=== PATIENT | female | born 1955 | race Caucasian/White ===

== ENCOUNTER 2016-10-20 00:29 | Observation (INO) ==
[2016-10-20] MEDS ORDERED: SODIUM CHLORIDE 0.9% 1,000 ML IV STA (00:56)
[2016-10-20] MEDS ORDERED: ONDANSETRON 4 MG/2 ML VIAL IV STA (00:56)
[2016-10-20] MEDS ORDERED: ONDANSETRON 4 MG/2 ML VIAL ONE (00:57)
--- NOTE | 2016-10-20 01:08 | Emergency Department Note ---
Chepe Hoang Rolonda, am scribing for, and in the presence of, Carroll Holman MD 01:08. Manda Hoang Charles R, MD, personally performed the services described in this documentation, ascribed by Roseline Mo in my presence, and it is both accurate and complete . Arrival - Arrival Chief Complaint: Nausea/Vomiting/Diarrhea Stated Complaint: vomiting ED Nursing Triage Note: pt was camping and finished eating dinner and suddenly became nauseated and started vomitting. pt family states she has been vomitting continuously since Mode of Arrival: Wheelchair Limitations: No Limitations Source: Patient, Family (daughter), Old Records Reviewed, RN Notes Reviewed Time Seen by Provider: 10/20/16 00:52 - History of Present Illness HPI Narrative: Pt is a 61 y/o female who presents to the ED via wheelchair for further evaluation of N/V with an onset of x3 hours. Daughter states that patient had been feeling ill for a few hours after eating fish and hush puppies. Daughter states that pt has had N/V s/p eating the fish and hush puppies and that pt has vomited at least x10 times. Pt confirmed N/V but denies diarrhea and any pain. No other complaint/pain in ED. Onset (ago): hour(s) Consistency: constant Severity: moderate Severity scale (1-10): 3 Allergies/Adverse Reactions: Allergies Allergy/AdvReac Type Severity Reaction Status Date / Time prochlorperazine Allergy Severe FACIAL Verified 08/27/15 12:31 [From Compazine] DROPING AND STROKE SYMPTOMS Amoxicillin [From Augmentin] Allergy Mild Nausea Verified 08/27/15 12:31 clavulanic acid Allergy Mild Nausea Verified 08/27/15 12:31 [From Augmentin] Gatifloxacin [From Tequin] Allergy Mild Nausea Verified 08/27/15 12:31 Home Medications: Home Medications Medication Instructions Recorded Confirmed Type Anithistimine 10 mg PO Q6HR 08/27/15 10/20/16 History Levothyroxine Tab [Synthroid Tab] 50 mcg PO DAILY 08/27/15 10/20/16 History Omeprazole 20 mg PO DAILY 08/27/15 10/20/16 History Ranitidine Tab [Zantac Tab] 150 mg PO BEDTIME 09/04/15 10/20/16 History Cranberry 500 mg PO DAILY 10/20/16 10/20/16 History Docusate Sodium 100 mg PO QOTHER DAY 10/20/16 10/20/16 History Oxybutynin Xl [Ditropan Xl] 5 mg PO DAILY 10/20/16 10/20/16 History Review of System - Review of System 12 point system: reviewed and no additional remarkable complaints except as stated - Review of System Constitutional: Absent: chills, fever Respiratory: Absent: cough, respiratory distress, wheezing Cardiovascular: Absent: chest pain, palpitations Gastrointestinal: Present: nausea, vomiting. Absent: abdominal pain, diarrhea Genitourinary female: Absent: dysuria Musculoskeletal: Absent: arm pain, back pain, leg pain, neck pain Skin: Absent: rash Neurological: Absent: headache, weakness Endocrine: Absent: fatigue Medical,Surgical,& Family Hx - Medical History Neurology: History of: Migraine (blurred vision) No history of: Seizures HEENT: History of: Eye Problem (glasses), Dental Problems (full set), HEENT Problems (SINUS SURGERY 2003 [facility]) Endocrine: History of: Thyroid Disorder Respiratory: History of: Bronchitis (past history) Genitourinary: History of: Recurring Urinary Tract Infections (past history) Gastrointestinal: History of: GERD, Polyps (removed) Musculoskeletal: History of: Back/Neck Problems (lower back pain) Hematology: History of: Anemia (childhood) Reproductive: History of: Abnormal Pap Smear (past history) Other: History of: Anesthesia Reactions (nausea and vomiting SEVERE), Cancer ( SKIN CANCER NOSE REMOVED) - Surgical History Abdominal Surgeries: Surgical HX of: Abdominal Surgery, Appendectomy, Colonoscopy, EGD Reproductive Surgeries: Surgical HX of;: Genitourinary Surgery (BLADDER SLING), Hysterectomy Orthopedic Surgeries: Surgical HX of;: Implanted Devices (plate in neck), Orthopedic Surgery (right hand third digit, left knee scope), Spinal Surgery ( neck surgery 2009) - Family History Family History: Reports;: Family Diabetes (MOTHER SISTER), Family Heart Disease (MOTHER), Family Hypertension (MOTHER BROTHER), Family Stroke (MOTHER) - Social History Smoking Status: Former smoker Frequency of Alcohol Use: None Type of Drug Use: None Exam Vital Signs: Vital Signs Temperature 97.0 F L 10/20/16 00:33 Pulse Rate 101 H 10/20/16 00:46 Respiratory Rate 20 10/20/16 00:46 Blood Pressure 146/110 10/20/16 00:46 O2 Sat by Pulse Oximetry 94 L 10/20/16 00:46 - General General appearance: alert, in no apparent distress, other (smells like vomit) - Head Head exam: Present: atraumatic, normocephalic - Eye Eye exam: Present: PERRL, EOMI - ENT ENT exam: Present: mucous membranes moist. Absent: mucous membranes dry - Neck Neck exam: Present: full ROM. Absent: tenderness - Chest Chest inspection: Present: symmetric chest wall rise. Absent: tenderness - Respiratory Respiratory exam: Present: normal lung sounds bilaterally. Absent: wheezes - Cardiovascular Cardiovascular exam: Present: tachycardia - Abdominal Exam Abdominal exam: Present: soft, hypoactive bowel sounds - Extremities Exam Extremities exam: Present: full ROM. Absent: tenderness - Back Exam Back exam: Present: full ROM. Absent: tenderness - Neurological Exam Neurological exam: Present: alert, oriented X3, CN II-XII intact - Psychiatric Psychiatric exam: Present: normal affect, normal mood - Skin Skin exam: Present: warm, dry, intact, normal color. Absent: rash Course - Consultations Consultation #1: Hospitalist will admit patient Time: 01:50 Results - Labs CBC & BMP: 10/20/16 00:58 10/20/16 00:58 Lab Results: I have reviewed the patients labs Labs: Laboratory Tests 10/20/16 00:58 WBC 18.9 H RBC 4.58 Hgb 14.4 Hct 40.8 Plt Count 233 Neut % (Auto) 83.0 H Lymph % (Auto) 10.2 L Neut # (Auto) 15.7 H [place] # (Auto) 1.0 H Laboratory Tests 10/20/16 00:58 Sodium 143 Potassium 3.5 Chloride 108 H Carbon Dioxide 26 BUN 21 H GFR Calculation 74 BUN/Creatinine Ratio 23.00 H Glucose 147 H Alkaline Phosphatase 145 H Amylase 24 L Disposition Clinical Impression: Gastroenteritis, Food poisoning, Leukocytosis Case discussed with: patient, patient's family Disposition: Still a Patient Condition: Stable Time of Disposition: 01:50
[2016-10-20 01:18] LABS: Basophils # 0.1 10*3/uL (0.0-0.2); Basophils % 0.3 % (0.0-0.8); Eosinophils # 0.2 10*3/uL (0.0-0.87); Eosinophils % 0.9 % (0.00-10.9); Hematocrit 40.8 VOL% (35.7-47.0); Hemoglobin 14.4 GM/DL (12.0-16.0); Immature Granulocytes % 0.4 %; Immature Granulocytes Absolute 0.07 #; Lymphocytes # 1.9 10*3/uL (1.4-4.0); Lymphocytes % 10.2 % (21.3-54.2); Mean Corpuscular HGB Conc 35.3 GM/DL (32-36); Mean Corpuscular Hemoglobin 31 PG (27-34); Mean Corpuscular Volume 89.1 FL (87-102); Mean Platelet Volume 10.8 FL (9.6-12.0); Monocytes % 5.2 % (1.7-12.7); Neutrophils # 15.7 10*3/uL (1.4-7.4); Platelet Count 233 T/CUMM (130-400); Red Blood Count 4.58 MC/CUMM (3.8-5.5); Red Cell Distribution Width 13.1 % (9.3-17.3); White Blood Count 18.9 T/CUMM (4-12)
[2016-10-20 01:36] LABS: Alanine Aminotransferase 29 U/L (13-56); Alkaline Phosphatase 145 U/L (45-117); Amylase 24 U/L (25-115); Aspartate Amino Transferase 24 U/L (0-37); Bilirubin,Total < 0.39 MG/DL (0.2-1.0); Blood Urea Nitrogen 21 MG/DL (7-18); Calcium 9.1 MG/DL (8.5-10.1); Glucose 147 MG/DL (74-106); Magnesium 2.1 MG/DL (1.8-2.4); Potassium 3.5 MMOL/L (3.5-5.1); Sodium 143 MMOL/L (136-145); Total Protein 7.2 G/DL (6.4-8.3)
[2016-10-20] MEDS ORDERED: metroNIDAZOLE INJ 500 MG in PREMIX 1 EACH IV STA (01:41)
[2016-10-20] MEDS ORDERED: PROMETHAZINE 25 MG/1 ML VIAL ONE (01:43)
[2016-10-20 01:56] LABS: Troponin I Only < 0.015 NG/ML (0.00-0.045)
[2016-10-20] MEDS ORDERED: ACETAMINOPHEN 325 MG TABLET PO PRN (02:37)
[2016-10-20] MEDS ORDERED: ONDANSETRON 4 MG/2 ML VIAL IV PRN (02:37)
--- NOTE | 2016-10-20 02:46 | Hospitalist History & Physical ---
Assessment and Plan (1) Gastroenteritis Status: Acute Current Visit: Yes (2) Leukocytosis Status: Acute Assessment and plan: We will admit the patient our service. I have ordered stool cultures. We will start her on Flagyl. Continue home meds as appropriate. Continue with IV hydration. Recheck labs in the morning and reevaluate patient at that time. Current Visit: Yes History of Present Illness Chief complaint: Nausea vomiting diarrhea History of present illness: Ms. Becerra is a 61 year old female with past medical history significant for reflux and hypothyroidism who is in normal state of health till 10 PM tonight. Patient had eaten some fish and hospice peas that were cooked at home. She developed extreme nausea and vomiting after that. She came up to our hospital for further evaluation. The family reports nobody else got sick. She denies any fever but reports feeling cold. I was consulted to admit her to the ER for further evaluation Home Medications Medication Instructions Recorded Confirmed Type Anithistimine 10 mg PO Q6HR 08/27/15 10/20/16 History Levothyroxine Tab [Synthroid Tab] 50 mcg PO DAILY 08/27/15 10/20/16 History Omeprazole 20 mg PO DAILY 08/27/15 10/20/16 History Ranitidine Tab [Zantac Tab] 150 mg PO BEDTIME 09/04/15 10/20/16 History Cranberry 500 mg PO DAILY 10/20/16 10/20/16 History Docusate Sodium 100 mg PO QOTHER DAY 10/20/16 10/20/16 History Oxybutynin Xl [Ditropan Xl] 5 mg PO DAILY 10/20/16 10/20/16 History Allergies Allergy/AdvReac Type Severity Reaction Status Date / Time prochlorperazine Allergy Severe FACIAL Verified 08/27/15 12:31 [From Compazine] DROPING AND STROKE SYMPTOMS Amoxicillin [From Augmentin] Allergy Mild Nausea Verified 08/27/15 12:31 clavulanic acid Allergy Mild Nausea Verified 08/27/15 12:31 [From Augmentin] Gatifloxacin [From Tequin] Allergy Mild Nausea Verified 08/27/15 12:31 Medical,Surgical,& Family Hx - Medical History Neurology: History of: Migraine (blurred vision) No history of: Seizures HEENT: History of: Eye Problem (glasses), Dental Problems (full set), HEENT Problems (SINUS SURGERY 2003 [facility]) Endocrine: History of: Thyroid Disorder Respiratory: History of: Bronchitis (past history) Genitourinary: History of: Recurring Urinary Tract Infections (past history) Gastrointestinal: History of: GERD, Polyps (removed) Musculoskeletal: History of: Back/Neck Problems (lower back pain) Hematology: History of: Anemia (childhood) Reproductive: History of: Abnormal Pap Smear (past history) Other: History of: Anesthesia Reactions (nausea and vomiting SEVERE), Cancer ( SKIN CANCER NOSE REMOVED) - Surgical History Abdominal Surgeries: Surgical HX of: Abdominal Surgery, Appendectomy, Colonoscopy, EGD Reproductive Surgeries: Surgical HX of;: Genitourinary Surgery (BLADDER SLING), Hysterectomy Orthopedic Surgeries: Surgical HX of;: Implanted Devices (plate in neck), Orthopedic Surgery (right hand third digit, left knee scope), Spinal Surgery ( neck surgery 2009) - Family History Family History: Reports;: Family Diabetes (MOTHER SISTER), Family Heart Disease (MOTHER), Family Hypertension (MOTHER BROTHER), Family Stroke (MOTHER) - Social History Smoking Status: Former smoker Frequency of Alcohol Use: None Type of Drug Use: None 12 point system: reviewed and no additional remarkable complaints except as stated Exam - Constitutional Vitals: Period Temp Pulse Resp BP Sys/Brantley Pulse Ox Last 24 Hr 97.0 F 101-101 20-24 132-146/91-110 94-96 - General General appearance: alert, in no apparent distress - Head Head exam: Present: atraumatic, normocephalic - Eye Eye exam: Present: PERRL, EOMI - ENT ENT exam: Present: mucous membranes moist. - Chest Chest inspection: Present: symmetric chest wall rise. - Respiratory Respiratory exam: Present: normal lung sounds bilaterally. - Cardiovascular Cardiovascular exam: Present: tachycardia - Abdominal Exam Abdominal exam: Present: soft, hypoactive bowel sounds - Extremities Exam Extremities exam: Present: full ROM. Absent: tenderness - Back Exam Back exam: Present: full ROM. Absent: tenderness - Neurological Exam Neurological exam: Present: alert, oriented X3, CN II-XII intact - Psychiatric Psychiatric exam: Present: normal affect, normal mood - Skin Skin exam: Present: warm, dry, intact, normal color. Results - Labs CBC & BMP: 10/20/16 00:58 10/20/16 00:58
[2016-10-20] MEDS ORDERED: SODIUM CHLORIDE 0.9% 1,000 ML IV SCH (03:00)
--- NOTE | 2016-10-20 03:01 | EKG Report ---
Stationary ECG Study [facility] ER Test Date: 10/20/2016 2:26:43 AM Pat Name: LEONARDO ROTH Department: Room: Gender: F Cashier General: : 1955 Requested by: Carroll Elizabeth Order Number: [id number] Reading MD: ANNELIESE DEMARCO Intervals [place] Rate: 107 P: 66 AK: 150 QRS: 104 QRSD: 95 T: 11 QT: 307 QTc: 370 Interpretive Statements SINUS TACHYCARDIA POSSIBLE RIGHT ATRIAL ENLARGEMENT INCOMPLETE RIGHT BUNDLE BRANCH BLOCK POSSIBLE RIGHT VENTRICULAR HYPERTROPHY Electronically Signed On 10-20-16 06:50:04 CDT by ANNELIESE DEMARCO [email or web address]
[2016-10-20 03:30] LABS: Apearance,Urine CLEAR (Clear); Bacteria,Urine Occasional /HPF (Few); Bilirubin,Urine Negative (Negative); Blood, Urine Small mg/dL (Negative); Glucose,Urine (UA) Negative (Negative); Ketones,Urine 5 mg/dL (Negative); Mucus,Urine Occasional /LPF (Occasional); Nitrite,Urine Negative (Negative); Protein,Urine Negative; RBC,Urine <1 /HPF (0-4); Urine Color Straw (Yellow); Urine Specific Gravity 1.009 (1.001-1.035); Urine Urobilinogen < 2.0 EU/DL (0.2-1.0); WBC,Urine 5 /HPF (0-6)
[2016-10-20] MEDS: LEVOTHYROXINE 50 MCG TABLET PO SCH (06:15)
--- NOTE | 2016-10-20 06:24 | XRay Report ---
XR abdomen 2V Indication: Nausea and vomiting. Comparison: None. Technique: Flat and erect images of the abdomen were performed. Findings: Lung bases are clear. No organomegaly suggested. The bowel gas pattern demonstrates no significant abnormality. Bony structures as well as soft tissues demonstrate no evidence of significant pathology. Surgical absence of the gallbladder is demonstrated. Impression: 1. No active process is suggested within the abdomen or pelvis. 10/20/2016 6:21 AM PROCEDURE INTERPRETED AT [facility] DEPARTMENT OF RADIOLOGY Final Report Signed by: Dr. Corey Dia
[2016-10-20 07:53] LABS: Basophils % 0.1 % (0.0-0.8); Calcium 7.7 MG/DL (8.5-10.1); Eosinophils # 0.1 10*3/uL (0.0-0.87); Eosinophils % 0.9 % (0.00-10.9); Hemoglobin 12.6 GM/DL (12.0-16.0); Immature Granulocytes % 0.4 %; Immature Granulocytes Absolute 0.07 #; Lymphocytes # 1.7 10*3/uL (1.4-4.0); Lymphocytes % 10.8 % (21.3-54.2); Mean Corpuscular Hemoglobin 32 PG (27-34); Mean Platelet Volume 10.8 FL (9.6-12.0); Monocytes # 0.7 10*3/uL (0.11-0.8); Monocytes % 4.4 % (1.7-12.7); Neutrophils # 13.2 10*3/uL (1.4-7.4); Neutrophils % 83.4 % (38.7-73.9); Osmolality,Calculated 290.7 MOS/KG (273-304); Platelet Count 224 T/CUMM (130-400); Potassium 3.7 MMOL/L (3.5-5.1); Red Cell Distribution Width 13.2 % (9.3-17.3); White Blood Count 15.8 T/CUMM (4-12)
[2016-10-20] MEDS: ENOXAPARIN 40 MG/0.4 ML SYRINGE SUBCUT SCH (08:14)
[2016-10-20] MEDS: PANTOPRAZOLE 40 MG TABLET PO SCH (08:15)
[2016-10-20] MEDS ORDERED: OXYBUTYNIN XL 5 MG TABLET PO SCH ×2 (09:00→21:00)
[2016-10-20] MEDS: SODIUM CHLOR 0.9% KCL 40 MEQ 40 MEQ/1,000 ML BAG IV SCH ×2 (09:43→20:22)
[2016-10-20] MEDS ORDERED: metroNIDAZOLE INJ 500 MG in PREMIX 1 EACH IV SCH (11:00)
[2016-10-20] MEDS ORDERED: LOPERAMIDE 2 MG CAPSULE PO PRN (13:51)
--- NOTE | 2016-10-20 13:52 | Hospitalist Progress Note ---
Assessment and Plan (1) Gastroenteritis Status: Acute Assessment and plan: cont IVF with potassium, clear liquids advance as tolerated Current Visit: Yes (2) Leukocytosis Status: Acute Assessment and plan: she improve with time, cipro IV Current Visit: Yes Hospitalist: Subjective Interval history: Patient feeling a little bit better today. The nausea and vomiting has stopped but she is still having diarrhea. Nobody else was sick from eating the same food. Exam - Constitutional Vitals: Period Temp Pulse Resp BP Sys/Brantley Pulse Ox Last 24 Hr 97.0 F-97.8 F 86-101 16-24 121-146/58-110 94-98 Exam: Heart Rate-[tachy] Lungs-[CTAB] GI-[+bs soft, NT] Ext-[no edema] Neuro weak, alert and oriented times 3 psych [normal mood and affect] General [mild acute distress] Results - Labs CBC & BMP: 10/20/16 07:09 10/20/16 07:09 Lab Results: I have reviewed the past 24 hour labs Labs: stool no wbc, no c diff
[2016-10-20] MEDS: CIPROFLOXACIN INJ 400 MG in PREMIX 1 EACH IV SCH (14:09)
[2016-10-20] MEDS ORDERED: FAMOTIDINE 20 MG TABLET PO SCH (21:00)
[2016-10-21] MEDS: CIPROFLOXACIN INJ 400 MG in PREMIX 1 EACH IV SCH ×2 (02:55→14:17)
[2016-10-21 03:15] LABS: Basophils % 0.3 % (0.0-0.8); Eosinophils # 0.2 10*3/uL (0.0-0.87); Eosinophils % 3.6 % (0.00-10.9); Hematocrit 34.9 VOL% (35.7-47.0); Hemoglobin 11.6 GM/DL (12.0-16.0); Immature Granulocytes % 0.3 %; Immature Granulocytes Absolute 0.02 #; Lymphocytes # 3.1 10*3/uL (1.4-4.0); Lymphocytes % 51.2 % (21.3-54.2); Mean Corpuscular HGB Conc 33.2 GM/DL (32-36); Mean Corpuscular Hemoglobin 31 PG (27-34); Mean Corpuscular Volume 92.1 FL (87-102); Mean Platelet Volume 10.7 FL (9.6-12.0); Monocytes # 0.5 10*3/uL (0.11-0.8); Monocytes % 8.1 % (1.7-12.7); Neutrophils # 2.2 10*3/uL (1.4-7.4); Neutrophils % 36.5 % (38.7-73.9); Platelet Count 210 T/CUMM (130-400); Red Blood Count 3.79 MC/CUMM (3.8-5.5); Red Cell Distribution Width 13.3 % (9.3-17.3)
[2016-10-21] MEDS: SODIUM CHLOR 0.9% KCL 40 MEQ 40 MEQ/1,000 ML BAG IV SCH ×2 (03:38→10:35)
[2016-10-21 03:42] LABS: Osmolality,Calculated 287.6 MOS/KG (273-304); Potassium 4.2 MMOL/L (3.5-5.1)
[2016-10-21 04:00] LABS: Lymphocytes 49 % (20-55); Segmented Neutrophils 43 % (50-85)
[2016-10-21 04:02] LABS: Platelet Estimate Normal
[2016-10-21 04:03] LABS: Atypical Lymphocytes Few; Total Cells Counted 100
[2016-10-21] MEDS: LEVOTHYROXINE 50 MCG TABLET PO SCH (06:20)
--- NOTE | 2016-10-21 08:44 | Discharge Summary ---
<Garcia Bowden - Last Filed: 10/21/16 08:23> Hospital Course - Hospital Course Hospital Course: Ms. Becerra is a 61-year-old female with past medical history of GERD and hypothyroidism who presented to the ED on 10/20 with complaints of nausea, vomiting, and diarrhea. The patient stated that she was at her normal state of health until after dinner where she consumed fish and peas. After eating she began to experience extreme nausea and vomiting. She came in for further eval. She was noted to have a WBC of 18.9. She was admitted to the hospitalist service for further eval and treatment. Stool cultures were negative for wbcs and c. diff. WBC has returned to normal and she will be discharged home today on cipro for five days and followup with PMD in 1 week. Discharge Plan - Discharge Data Disposition: Disch To Home/Self Care - Discharge Medications New Ciprofloxacin Tab [Cipro Tab] 500 mg PO BID #10 tablet Ondansetron Odt Tab [Zofran Odt] 4 mg PO Q6H #20 tablet Loperamide Cap [Imodium Cap] 2 mg PO Q3H PRN #20 capsule PRN Reason: Diarrhea Continue Omeprazole 20 mg PO DAILY Levothyroxine Tab [Synthroid Tab] 50 mcg PO DAILY Ranitidine Tab [Zantac Tab] 150 mg PO BEDTIME Oxybutynin Xl [Ditropan Xl] 5 mg PO BEDTIME Cetirizine Tab [ZyrTEC Tab] 10 mg PO DAILY Discontinued Anithistimine 10 mg PO Q6HR Cranberry 500 mg PO DAILY Docusate Sodium 100 mg PO QOTHER DAY Naproxen Sodium [Aleve] 440 mg PO BID W/MEALS - Follow Up or Referral Follow Up: pmd, dr [Other] - 2 Weeks - Forms/Instructions Exam - Constitutional Vitals: Period Temp Pulse Resp BP Sys/Brantley Pulse Ox Last 24 Hr 97.5 F-98.0 F 69-96 16-18 102-127/57-78 92-98 Discharge Results Procedures and tests throughout hospitalization: Pending Orders 10/20/16 02:41 Stool Culture Stat Labs on day of discharge: Labs from last 24 hours 10/21/16 10/21/16 02:40 02:40 WBC 6.0 D RBC 3.79 L Hgb 11.6 L Hct 34.9 L MCV 92.1 MCH 31 MCHC 33.2 RDW 13.3 Plt Count 210 MPV 10.7 Neut % (Auto) 36.5 L Lymph % (Auto) 51.2 [facility] % (Auto) 8.1 Eos % (Auto) 3.6 Baso % (Auto) 0.3 Neut # (Auto) 2.2 Lymph # (Auto) 3.1 [facility] # (Auto) 0.5 Eos # (Auto) 0.2 Baso # (Auto) 0.0 Total Counted 100 Immature Gran % 0.3 Nucleated RBC % 0.0 Immature Gran # 0.02 Segmented Neutrophils 43 L Lymphocytes 49 Monocytes 6 Basophils 2.0 H Nucleated RBCs # 0.00 Atypical Lymphocytes Few Platelet Estimate Normal Sodium 146 H Potassium 4.2 Chloride 113 H Carbon Dioxide 26 Anion Gap 11.2 BUN 10 Creatinine 0.70 GFR Calculation 102 BUN/Creatinine Ratio 14.00 Glucose 84 Calculated Osmolality 287.6 Calcium 8.0 L DS: Provider Date of admission: 10/20/16 02:38 Primary care physician: . No PCP Attending physician on admission: Onesimo Salazar MD Consults: 10/20/16 04:42 Consult to Pastoral Services [CONS] Routine Comment: Pastoral Screen: Request [employer] Part [employer]er Visit Discharging clinician: Garcia Bowden NP <Elvie Lei - Last Filed: 10/21/16 10:08> Hospital Course - Time spent with patient Time with patient DS: Less than 30 minutes (25 min) Diagnosis - Discharge Diagnosis (1) Gastroenteritis Status: Acute (2) Leukocytosis Status: Acute Discharge Plan - Discharge Data Condition at Discharge: Stable Discharge Diet: other (soft diet ) Activity: resume usual activities as tolerated Hygiene: no restrictions Weight Bearing at Discharge: full weight bearing Contact your physician if you experience:: fever over 101 Exam - Constitutional General appearance: normal weight, no acute distress - Respiratory Respiratory exam: Present: clear to auscultation bilaterally. Absent: rhonchi, wheezes - Cardiovascular Cardiovascular exam: Present: regular rate and rhythm. Absent: systolic murmur - GI/Abdominal GI/Abdominal exam: Present: normal bowel sounds, soft. Absent: tenderness - Extremities Exam Extremities exam: Present: normal inspection, normal capillary refill
[2016-10-21] MEDS: PANTOPRAZOLE 40 MG TABLET PO SCH (09:01)
[2016-10-21] MEDS: ENOXAPARIN 40 MG/0.4 ML SYRINGE SUBCUT SCH (09:02)
[2016-10-21 11:49] VITALS: BP 131/66
[2016-10-22] MEDS ORDERED: CETIRIZINE 10 MG TABLET PO SCH (09:00)
== END 2016-10-21 13:58 | disposition home or self-care (01) ==
LOC: N.ED 00:29 → SUATTDRO 02:38 → INTOOBSV 02:38 → N.EDINP 02:38 → N.5E 04:12
PROVIDERS: ADMIT Internal Medicine; ATTEND Internal Medicine